=== PATIENT | male | born 1965 | race Caucasian/White ===

== ENCOUNTER 2019-02-25 17:30 | Emergency (ER) | payer MEDICARE, MEDICAID ==
[~2019-02-25] VITALS: Ht 175.3 cm; Wt 63.6 kg
[2019-02-25] MEDS ORDERED: acetaminophen 325mg tablet PO ONE (18:50)
[2019-02-25] MEDS ORDERED: ketorolac trometh inj. 60 MG/2 ML VIAL IM ONE (18:50)
[2019-02-25] MEDS ORDERED: ondansetron 4mg rapidly disintigrating tab PO ONE (18:50)
[2019-02-25] MEDS ORDERED: sulfamethoxazole/trimethoprim DS (800/160mg) tablet PO ONE (18:50)
[2019-02-25] MEDS ORDERED: SULF1TAB49 PO (18:52)
[2019-02-25 19:00] VITALS: BP 148/99
== END 2019-02-25 19:17 | disposition home or self-care (01) ==
LOC: ER 17:31
DX: L02.416 Cutaneous abscess of left lower limb (principal); F12.90 Cannabis use, unspecified, uncomplicated; Z79.2 Long term (current) use of antibiotics
CPT/HCPCS: 96372; 99284; J1885

== ENCOUNTER 2019-05-18 10:23 | Day surgery (SDC) | payer MEDICARE, MEDICAID ==
[2019-05-18] MEDS ORDERED: LIDOcaine 2% 5ml jelly ONE (11:53)
== END 2019-05-18 12:41 | disposition home or self-care (01) ==
LOC: WOUND CARE 10:23
PROVIDERS: ATTEND Surgery
DX: L97.222 Non-pressure chronic ulcer of left calf with fat layer exposed (principal); L97.122 Non-pressure chronic ulcer of left thigh with fat layer exposed; L02.416 Cutaneous abscess of left lower limb; J45.909 Unspecified asthma, uncomplicated; F17.200 Nicotine dependence, unspecified, uncomplicated; F12.90 Cannabis use, unspecified, uncomplicated; Z86.19 Personal history of other infectious and parasitic diseases; Z79.2 Long term (current) use of antibiotics
CPT/HCPCS: 87070; 87075; 87077; 87102; 87186; 97597; A6021; A6154; A6196; A6446

== ENCOUNTER 2019-05-31 10:30 | Day surgery (SDC) | payer MEDICARE, MEDICAID ==
[2019-05-31] MEDS ORDERED: LIDOcaine 2% 5ml jelly ONE (11:03)
== END 2019-05-31 11:52 | disposition home or self-care (01) ==
LOC: WOUND CARE 10:30
PROVIDERS: ATTEND Surgery
DX: L97.222 Non-pressure chronic ulcer of left calf with fat layer exposed (principal); L97.122 Non-pressure chronic ulcer of left thigh with fat layer exposed; L02.416 Cutaneous abscess of left lower limb; J45.909 Unspecified asthma, uncomplicated; F17.200 Nicotine dependence, unspecified, uncomplicated; F12.90 Cannabis use, unspecified, uncomplicated; Z86.19 Personal history of other infectious and parasitic diseases; Z79.2 Long term (current) use of antibiotics
CPT/HCPCS: 97597; A4663; A6021; A6154; A6196; A6212

== ENCOUNTER 2019-06-07 10:30 | Day surgery (SDC) | payer MEDICARE, MEDICAID ==
[2019-06-07] MEDS ORDERED: LIDOcaine 2% 5ml jelly ONE (11:13)
[2019-06-07] MEDS ORDERED: nystatin/triamcinolone cream 15gm TP ONE (12:03)
== END 2019-06-07 12:30 | disposition home or self-care (01) ==
LOC: WOUND CARE 10:30
PROVIDERS: ATTEND Surgery
DX: L97.222 Non-pressure chronic ulcer of left calf with fat layer exposed (principal); L97.122 Non-pressure chronic ulcer of left thigh with fat layer exposed; L02.416 Cutaneous abscess of left lower limb; J45.909 Unspecified asthma, uncomplicated; F17.200 Nicotine dependence, unspecified, uncomplicated; F12.90 Cannabis use, unspecified, uncomplicated; Z86.19 Personal history of other infectious and parasitic diseases; Z79.2 Long term (current) use of antibiotics
CPT/HCPCS: 97597; J7999; A4663; A6021; A6154; A6212

== ENCOUNTER 2019-06-14 10:33 | Day surgery (SDC) | payer MEDICARE, MEDICAID ==
[2019-06-14] MEDS ORDERED: LIDOcaine 2% 5ml jelly ONE (11:32)
== END 2019-06-14 12:48 | disposition home or self-care (01) ==
LOC: WOUND CARE 10:33
PROVIDERS: ATTEND Surgery
DX: L97.222 Non-pressure chronic ulcer of left calf with fat layer exposed (principal); L97.122 Non-pressure chronic ulcer of left thigh with fat layer exposed; L02.416 Cutaneous abscess of left lower limb; J45.909 Unspecified asthma, uncomplicated; F17.200 Nicotine dependence, unspecified, uncomplicated; F12.90 Cannabis use, unspecified, uncomplicated; Z86.19 Personal history of other infectious and parasitic diseases; Z79.2 Long term (current) use of antibiotics
CPT/HCPCS: A6222; C5271; Q4102; A4663; A6212; A6250

== ENCOUNTER 2019-06-22 10:24 | Day surgery (SDC) | payer MEDICARE, MEDICAID ==
[2019-06-22] MEDS ORDERED: LIDOcaine 2% 5ml jelly ONE (10:45)
[2019-06-22] MEDS ORDERED: mupirocin 2% ointment 22GM ONE (11:10)
[2019-06-22] MEDS ORDERED: nystatin/triamcinolone cream 15gm TP ONE (11:26)
== END 2019-06-22 11:50 | disposition home or self-care (01) ==
LOC: WOUND CARE 10:24
PROVIDERS: ATTEND Nurse Practitioner Family
DX: L97.222 Non-pressure chronic ulcer of left calf with fat layer exposed (principal); L97.122 Non-pressure chronic ulcer of left thigh with fat layer exposed; S61.402A Unspecified open wound of left hand, initial encounter; S61.401A Unspecified open wound of right hand, initial encounter; L02.416 Cutaneous abscess of left lower limb; J45.909 Unspecified asthma, uncomplicated; F17.200 Nicotine dependence, unspecified, uncomplicated; F12.90 Cannabis use, unspecified, uncomplicated; Z86.19 Personal history of other infectious and parasitic diseases; Z79.2 Long term (current) use of antibiotics; X58.XXXA Exposure to other specified factors, initial encounter; Y93.89 Activity, other specified; Y92.89 Other specified places as the place of occurrence of the external cause; Y99.8 Other external cause status
CPT/HCPCS: 97597; A6209; J7999; A4663; A6021; A6154

== ENCOUNTER 2019-06-29 10:15 | Day surgery (SDC) | payer MEDICARE, MEDICAID ==
[2019-06-29] MEDS ORDERED: LIDOcaine 2% 5ml jelly ONE (10:37)
[2019-06-29] MEDS ORDERED: nystatin/triamcinolone cream 15gm TP ONE (12:17)
[2019-06-29] MEDS ORDERED: mupirocin 2% ointment 22GM ONE (12:17)
== END 2019-06-29 12:34 | disposition home or self-care (01) ==
LOC: WOUND CARE 10:15
PROVIDERS: ATTEND Nurse Practitioner Family
DX: L97.222 Non-pressure chronic ulcer of left calf with fat layer exposed (principal); L97.122 Non-pressure chronic ulcer of left thigh with fat layer exposed; S61.402D Unspecified open wound of left hand, subsequent encounter; S61.401D Unspecified open wound of right hand, subsequent encounter; L02.416 Cutaneous abscess of left lower limb; J45.909 Unspecified asthma, uncomplicated; F17.200 Nicotine dependence, unspecified, uncomplicated; F12.90 Cannabis use, unspecified, uncomplicated; Z86.19 Personal history of other infectious and parasitic diseases; Z79.2 Long term (current) use of antibiotics; X58.XXXD Exposure to other specified factors, subsequent encounter
CPT/HCPCS: 97597; J7999; A4663; A6021; A6154; A6212; A6234

== ENCOUNTER 2019-07-06 10:25 | Day surgery (SDC) | payer MEDICARE, MEDICAID ==
[2019-07-06] MEDS ORDERED: LIDOcaine/PRILOcaine 5gm cream TP ONE (10:50)
== END 2019-07-06 11:59 | disposition home or self-care (01) ==
LOC: WOUND CARE 10:25
PROVIDERS: ATTEND Surgery
DX: L97.222 Non-pressure chronic ulcer of left calf with fat layer exposed (principal); L97.122 Non-pressure chronic ulcer of left thigh with fat layer exposed; S61.402D Unspecified open wound of left hand, subsequent encounter; S61.401D Unspecified open wound of right hand, subsequent encounter; L02.416 Cutaneous abscess of left lower limb; J45.909 Unspecified asthma, uncomplicated; F17.200 Nicotine dependence, unspecified, uncomplicated; F12.90 Cannabis use, unspecified, uncomplicated; Z86.19 Personal history of other infectious and parasitic diseases; Z79.2 Long term (current) use of antibiotics; X58.XXXD Exposure to other specified factors, subsequent encounter
CPT/HCPCS: 97597; A4663; A6021; A6154; A6212

== ENCOUNTER 2019-07-13 10:25 | Day surgery (SDC) | payer MEDICARE, MEDICAID ==
[2019-07-13] MEDS ORDERED: LIDOcaine 2% 5ml jelly ONE (11:06)
== END 2019-07-13 12:44 | disposition home or self-care (01) ==
LOC: WOUND CARE 10:25
PROVIDERS: ATTEND Surgery
DX: L97.222 Non-pressure chronic ulcer of left calf with fat layer exposed (principal); L97.122 Non-pressure chronic ulcer of left thigh with fat layer exposed; S61.402D Unspecified open wound of left hand, subsequent encounter; S61.401D Unspecified open wound of right hand, subsequent encounter; L02.416 Cutaneous abscess of left lower limb; J45.909 Unspecified asthma, uncomplicated; F17.200 Nicotine dependence, unspecified, uncomplicated; F12.90 Cannabis use, unspecified, uncomplicated; Z86.19 Personal history of other infectious and parasitic diseases; Z79.2 Long term (current) use of antibiotics; X58.XXXD Exposure to other specified factors, subsequent encounter
CPT/HCPCS: 97597; A4663; A6021; A6154; A6212

== ENCOUNTER 2019-07-19 10:00 | Day surgery (SDC) | payer MEDICARE, MEDICAID ==
[2019-07-19] MEDS ORDERED: LIDOcaine 2% 5ml jelly ONE (10:55)
[2019-07-19] MEDS ORDERED: nystatin/triamcinolone cream 15gm TP ONE (11:26)
== END 2019-07-19 11:41 | disposition home or self-care (01) ==
LOC: WOUND CARE 10:00
PROVIDERS: ATTEND Surgery
DX: L97.222 Non-pressure chronic ulcer of left calf with fat layer exposed (principal); L97.122 Non-pressure chronic ulcer of left thigh with fat layer exposed; L02.416 Cutaneous abscess of left lower limb; J45.909 Unspecified asthma, uncomplicated; F17.200 Nicotine dependence, unspecified, uncomplicated; F12.90 Cannabis use, unspecified, uncomplicated; Z86.19 Personal history of other infectious and parasitic diseases; Z79.2 Long term (current) use of antibiotics
CPT/HCPCS: 97597; J7999; A4663; A6021

== ENCOUNTER 2019-07-26 10:00 | Outpatient (CLI) | payer MEDICARE, MEDICAID | END 2019-07-26 10:50 | disposition home or self-care (01) | LOC: EDSTATUS 10:00 → WOUND CARE 10:00 | PROVIDERS: ATTEND Surgery | DX: L97.222 Non-pressure chronic ulcer of left calf with fat layer exposed (principal); L97.122 Non-pressure chronic ulcer of left thigh with fat layer exposed; L02.416 Cutaneous abscess of left lower limb; J45.909 Unspecified asthma, uncomplicated; L02.511 Cutaneous abscess of right hand; L02.512 Cutaneous abscess of left hand; F17.200 Nicotine dependence, unspecified, uncomplicated; F12.90 Cannabis use, unspecified, uncomplicated; Z86.19 Personal history of other infectious and parasitic diseases; Z79.2 Long term (current) use of antibiotics | CPT/HCPCS: A4663; A6021; G0463 ==